=== PATIENT | male | born 1940 | race Caucasian/White ===

== ENCOUNTER 2022-04-08 14:38 | Emergency (ER) | payer OTHER, MEDICARE, SELFPAY ==
[2022-04-08] VITALS (7 sets, daily range): BP systolic 103–124; BP diastolic 58–74; PULSE 54–76; RESP 15–30; TEMP 36.4–37; O2SAT 92–97; BMI 32.3
--- NOTE | 2022-04-08 14:53 | ECG_ITS ---
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 Measurements Intervals [place] Rate: 62 P: 47 IL: 162 QRS: -43 QRSD: 118 T: 68 QT: 456 QTc: 465 Interpretive Statements SINUS RHYTHM WITH OCCASIONAL VENTRICULAR PREMATURE COMPLEXES LEFT AXIS DEVIATION [QRS AXIS < -30] LOW QRS VOLTAGE IN PRECORDIAL LEADS [QRS DEFLECTION < 1.0 mV IN CHEST LEADS] INCOMPLETE RIGHT BUNDLE BRANCH BLOCK [90+ ms QRS DURATION, TERMINAL R IN V1/V2, 40+ ms S IN I/aVL/V4/V5/V6] ANTEROSEPTAL MYOCARDIAL INFARCTION , OF INDETERMINATE AGE [40+ ms Q WAVE IN V1-V4] No previous ECG available for comparison Electronically Signed On 04-08-2022 18:56:18 CDT by Robles Wyman M.D. [id number]
--- NOTE | 2022-04-08 15:18 | XRR_ITS ---
PROCEDURE INFORMATION: Exam: XR Chest Exam date and time: 04/08/2022 3:22 PM Age: 81 years old Clinical indication: Cough and dyspnea; Additional info: Dyspnea/cough TECHNIQUE: Imaging protocol: Radiologic exam of the chest. Views: 1 view. COMPARISON: No relevant prior studies available. FINDINGS: Lungs: The lung bases are suboptimally assessed due to technique however the upper lungs are clear of focal consolidation. Ill-defined streaky left basilar opacities suggesting atelectasis versus developing pneumonia. Pleural spaces: Unremarkable. No pleural effusion. No pneumothorax. Heart/Mediastinum: Cardiac silhouette appears normal in size. No obvious vascular congestion. Bones/joints: No acute osseous findings. Reverse prosthesis in the right shoulder. Other findings: Single view was submitted. XR/XR chest 1V portable [id number] IMPRESSION: Left basilar streaky opacities as described above.
--- NOTE | 2022-04-08 15:20 | ECG_ITS ---
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 Measurements Intervals [place] Rate: 55 P: 85 [place]: 169 QRS: -21 QRSD: 110 T: 58 QT: 455 QTc: 437 Interpretive Statements SINUS BRADYCARDIA WITH OCCASIONAL VENTRICULAR PREMATURE COMPLEXES LOW QRS VOLTAGE IN PRECORDIAL LEADS [QRS DEFLECTION < 1.0 mV IN CHEST LEADS] INCOMPLETE RIGHT BUNDLE BRANCH BLOCK [90+ ms QRS DURATION, TERMINAL R IN V1/V2, 40+ ms S IN I/aVL/V4/V5/V6] ANTEROSEPTAL MYOCARDIAL INFARCTION , OF INDETERMINATE AGE [40+ ms Q WAVE IN V1-V4] Compared to ECG 04/08/2022 15:01:55 Sinus rhythm no longer present Left-axis deviation no longer present Myocardial infarct finding still present Electronically Signed On 04-08-2022 19:00:02 CDT by Robles Wyman M.D. [id number]
--- NOTE | 2022-04-08 15:45 | ED_ITS ---
HPI - SOB/Dyspnea General: Chief Complaint: Shortness of Breath/Dyspnea Stated Complaint: SOB; weight gain Time Seen by Provider: 04/08/22 15:17 Source: patient Mode of arrival: ambulatory Limitations: no limitations History of Present Illness: HPI Narrative: 81-year-old male presents emergency room complaining of shortness of breath. Patient has a known history of coronary disease has a significantly reduced ejection fraction reported by family members at 35%. He normally wears oxygen at 2 L earlier today he was bradycardic and somewhat hypoxic on home monitoring. They brought him in family 1 of which is a nurse says he is likely not been terribly compliant with his medications. A month ago he was at a hospital in [place] and had an LAD stent. He states he is actually feeling better since then. He denies any fever sweats or chills he states his cough has actually been decreasing some from what it previously been the baseline is actually less productive. No diarrhea no known COVID exposure. He has not had any orthopnea but he has had his but a 13 pound weight gain and increasing swelling in his lower extremities MD elicited complaint: shortness of breath Pertinent past history: congestive heart failure Onset (ago): day(s) Context: occurred during exertion Timing: intermittent Severity: mild Exacerbating factors: exertion Relieving factors: oxygen and rest Associated symptoms: Reports cough; Deny abdominal pain, chest congestion, chest pain, diaphoresis, dizziness, extremity pain, fever(s), hemoptysis, lightheadedness, myalgias, nausea, orthopnea, palpitations, paresthesias, polydipsia, polyuria, rash, sense of impending doom, syncope or vomiting Treatment prior to arrival: oxygen Review of Systems Const: Reports: fatigue; Denies: fever(s), chills, malaise or diaphoresis ENMT: Denies: throat pain, ear or mastoid pain, nasal discharge or nasal congestion Card: Denies: chest pain, palpitations, lightheadedness, syncope or orthopnea Resp: Reports: dyspnea; Denies: productive cough, non-productive cough, hemoptysis or chest congestion GI: Denies: abdominal pain, nausea or vomiting : Denies: flank pain, dysuria, urinary frequency or urinary urgency Musc: Denies: extremity pain Skin/Breast: Denies: rash or pruritus Neuro: Denies: dizziness Endo: Denies: polyuria or polydipsia PFSH ED PFSH: Medical History Congestive heart failure Coronary artery disease Hypertension Social History Smoking and tobacco status: former smoker Alcohol intake: never Physical Exam Const: GENERAL APPEARANCE: cooperative and comfortable ORIENTATION/CONSCIOUSNESS: Yes awake, Yes oriented to person, Yes oriented to place and Yes oriented to time HENMT: COMMON NORMALS: normocephalic, atraumatic and hearing grossly normal bilaterally HEAD & SCALP: normocephalic and atraumatic Resp: COMMON NORMALS: normal respiratory effort, No retractions and No use of accessory muscles AUSCULTATION: crackles (Bilaterally at the bases) Cardio: COMMON NORMALS: regular rate, regular rhythm and No murmurs present (Cardio) RATE: regular rate RHYTHM: regular rhythm GI: COMMON NORMALS: Soft to palpation and No hepatosplenomegaly present AUSCULTATION: Yes normoactive bowel sounds PALPATION: Yes Soft to palpation, No Tenderness to palpation present (GI), No Guarding due to palpation present (GI) and Yes No hepatosplenomegaly present Extremity: COMMON NORMALS: normal to inspection, capillary refill normal, no clubbing, cyanosis or edema, no calf tenderness and no pedal edema Neuro: SENSORIUM/ORIENTATION: Yes oriented to person, Yes oriented to place and Yes oriented to time Skin: COMMON NORMALS: no rashes or lesions noted GENERAL SKIN EXAM: no rashes or lesions noted Course Vital Signs: Vital signs: Vital Signs Temperature 98.6 F 04/08/22 18:30 Pulse Rate 71 04/08/22 19:08 Respiratory Rate 24 H 04/08/22 19:08 Blood Pressure 118/68 04/08/22 19:08 Pulse Oximetry 93 04/08/22 19:08 Oxygen Delivery Me thod 04/08/22 17:54 Oxygen Flow Rate 1 04/08/22 17:54 MDM - SOB/Dyspnea Medical Decision Making Labs imaging and EKG reviewed. Patient given diuretics here we will change him to controlled release Coreg the equivalent will be 10 mg daily and follow-up with primary care and cardiology. Medical Records I reviewed the patient's medical records. Lab Data I reviewed the patient's lab results. : 04/08/22 15:50 04/08/22 15:50 Labs/Radiology: Radiology Impressions Chest X-Ray 04/08/22 15:18 IMPRESSION: Left basilar streaky opacities as described above. Laboratory Results WBC 5.1 10^3/uL (4.0-10.0) 04/08/22 15:50 RBC 3.72 10^6/uL (4.1-5.3) L 04/08/22 15:50 Hgb 11.5 g/dL (11.7-16.6) L 04/08/22 15:50 Hct 36.4 % (42.0-52.0) L 04/08/22 15:50 MCV 97.8 fl (80-94) H 04/08/22 15:50 MCH 30.9 pg (28.0-34.0) 04/08/22 15:50 MCHC 31.6 g/dL (30.0-36.0) 04/08/22 15:50 RDW 13.1 % (12.1-15.1) 04/08/22 15:50 Plt Count 127 10^3/cmm (130-400) L 04/08/22 15:50 MPV 9.0 fL (7.4-10.4) 04/08/22 15:50 Neut % (Auto) 62.6 % 04/08/22 15:50 Lymph % (Auto) 20.9 % 04/08/22 15:50 [place] % (Auto) 9.8 % 04/08/22 15:50 Eos % (Auto) 5.3 % 04/08/22 15:50 Baso % (Auto) 0.8 % 04/08/22 15:50 Neut # (Auto) 3.18 10^3/uL (1.8-7.7) 04/08/22 15:50 Lymph # (Auto) 1.1 10^3/uL (0.8-4.8) 04/08/22 15:50 [place] # (Auto) 0.5 10^3/uL (0.2-0.9) 04/08/22 15:50 Eos # (Auto) 0.3 10^3/uL (0.0-0.8) 04/08/22 15:50 Baso # (Auto) 0.0 10^3/uL (0.0-0.1) 04/08/22 15:50 Nucleated RBC % (auto) 0 % 04/08/22 15:50 Nucleated RBCs # 0.0 /100WBC 04/08/22 15:50 Sodium 142 mmol/L (136-145) 04/08/22 15:50 Potassium 4.0 mmol/L (3.5-5.1) 04/08/22 15:50 Chloride 102 mmol/L (98-107) 04/08/22 15:50 Carbon Dioxide 34 mmol/L (22-29) H 04/08/22 15:50 Anion Gap 10.0 (5-19) 04/08/22 15:50 BUN 30 mg/dL (8-23) H 04/08/22 15:50 Creatinine 1.4 mg/dL (0.7-1.2) H 04/08/22 15:50 GFR Calculation Not Reportable 04/08/22 15:50 Glucose 121 mg/dL (65-115) H 04/08/22 15:50 Calculated Osmolality 301 mOsm/kg (285-295) H 04/08/22 15:50 Calcium 8.6 mg/dL (8.5-10.5) 04/08/22 15:50 Troponin T Baseline 28 ng/L (0-15) H 04/08/22 15:50 Troponin T 120 Minute 26.83 ng/L (0-15) H 04/08/22 17:50 Delta Troponin T -1.17 ABS# (0-10) L 04/08/22 17:50 NT-Pro-B Natriuret Pep 611 pg/mL (0-450) H 04/08/22 15:50 Discharge Plan Discharge Patient Disposition: Home Clinical Impression: Congestive heart failure Prescriptions: New Coreg CR 10 mg capsule, ER multiphase 24 hr 10 mg PO QAM Qty: 20 0RF Rx Instructions: must administer with a meal/food Changed furosemide 40 mg tablet 60 mg PO DAILY Qty: 60 0RF Discontinued carvedilol 3.125 mg Tablet 3.125 mg PO BID Rx Instructions: must administer with a meal/food No Action losartan 50 mg tablet 50 mg PO DAILY pramipexole 1 mg Tablet 1 mg PO DAILY atorvastatin 40 mg Tablet 40 mg PO DAILY Wixela Inhub 250-50 mcg/dose Blister With Device 1 inh INHALATION BID trazodone 50 mg Tablet 100 mg PO BEDTIME meloxicam 15 mg Tablet 15 mg PO DAILY PRN (Reason: Pain) clonazepam 0.5 mg Tablet 0.5 mg PO TID PRN (Reason: Anxiety) Plavix 75 mg Tablet 75 mg PO DAILY Tylenol Ex Str Rapid Release 500 mg Tablet 1,000 mg PO Q6H PRN (Reason: Pain) alprazolam 0.5 mg Tablet 0.5 mg PO TID PRN (Reason: Anxiety) Flomax 0.4 mg Capsule 0.4 mg PO BID pantoprazole 40 mg Tablet,Delayed Release (Dr/Ec) 40 mg PO BID aspirin 81 mg Tablet,Chewable 81 mg PO DAILY ropinirole 5 mg tablet 5 mg PO TID finasteride 5 mg Tablet 5 mg PO DAILY finasteride 5 mg Tablet 5 mg PO DAILY Spiriva with HandiHaler 18 mcg Capsule, W/Inhalation Device 1 cap INHALATION DAILY Rx Instructions: puncture 1 cap using device; one dose = 2 inhalations Discharge Orders: Discharge ED (Routine); Ordered 04/08/22 Ordered By: Russell Rodriguez Discharge Diet: Usual diet Discharge Activity: Limit activity as instructed Patient Instructions: Opioid Safety Activity Restrictions/Additional Instructions: Follow-up with your doctor in the next 3 days to reevaluate your vital signs and kidney function and overall congestive heart failure management. Coding Level of Care Code ED Bacteriology Research Assistant for Yvonne Fwd Exam Detailed
[2022-04-08] MEDS: FUROsemide 10 mg/mL SDV 10mL 60 MG IVP (15:58)
[2022-04-08 16:00] LABS: Basophils % 0.8 %; Eosinophils # 0.3 10^3/uL (0.0-0.8); Eosinophils % 5.3 %; Hematocrit 36.4 % (42.0-52.0); Hemoglobin 11.5 g/dL (11.7-16.6); Lymphocytes # 1.1 10^3/uL (0.8-4.8); Lymphocytes % 20.9 %; Mean Corpuscular HGB Conc 31.6 g/dL (30.0-36.0); Mean Corpuscular Hemoglobin 30.9 pg (28.0-34.0); Mean Corpuscular Volume 97.8 fl (80-94); Monocytes # 0.5 10^3/uL (0.2-0.9); Monocytes % 9.8 %; Neutrophils # 3.18 10^3/uL (1.8-7.7); Neutrophils % 62.6 %; Nucleated Red Blood Cells % 0 %; Platelet Count 127 10^3/cmm (130-400); Red Blood Count 3.72 10^6/uL (4.1-5.3); Red Cell Distribution Width 13.1 % (12.1-15.1); White Blood Count 5.1 10^3/uL (4.0-10.0)
[2022-04-08 16:37] LABS: Blood Urea Nitrogen 30 mg/dL (8-23); Calcium 8.6 mg/dL (8.5-10.5); Carbon Dioxide 34 mmol/L (22-29); Chloride 102 mmol/L (98-107); Glucose 121 mg/dL (65-115); NT Pro B Type Natriuretic Pept 611 pg/mL (0-450); Osmolality Calculated 301 mOsm/kg (285-295); Sodium 142 mmol/L (136-145)
--- NOTE | 2022-04-08 17:13 | ECG_ITS ---
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 Measurements Intervals [place] Rate: 54 P: 59 MD: 162 QRS: -26 QRSD: 126 T: 27 QT: 500 QTc: 474 Interpretive Statements SINUS BRADYCARDIA POSSIBLE RIGHT VENTRICULAR CONDUCTION DELAY [RSR (QR) IN V1/V2] ANTEROLATERAL MYOCARDIAL INFARCTION , OF INDETERMINATE AGE [40+ ms Q WAVE IN I/aVL/V3-V6] Compared to ECG 04/08/2022 15:20:38 Ventricular premature complex(es) no longer present Incomplete right bundle-branch block no longer present Myocardial infarct finding still present Electronically Signed On 04-08-2022 18:55:00 CDT by Robles Wyman M.D. [email or web address] [email or web address] general [email or web address] Internet Groupmer[email or web address].[email or web address]/store/[id number]
[2022-04-08 17:56] LABS: Troponin(5th) Baseline 28 ng/L (0-15)
[2022-04-08 18:24] LABS: Troponin 5 2HR 26.83 ng/L (0-15)
[2022-04-08 18:27] LABS: Troponin 5 2HR Delta -1.17 ABS# (0-10)
== END 2022-04-08 19:09 | disposition home or self-care (01) ==
PROVIDERS: Emergency Provider Family Medicine
DX: I11.0 Hypertensive heart disease with heart failure (principal); I50.9 Heart failure, unspecified; Z79.02 Long term (current) use of antithrombotics/antiplatelets; Z79.82 Long term (current) use of aspirin; I25.10 Atherosclerotic heart disease of native coronary artery without angina pectoris; Z87.891 Personal history of nicotine dependence
CPT/HCPCS: 71045; 80048; 83880; 84484; 85025; 93005; 96374; 99285; J1940